=== PATIENT | female | born 1960 ===

== ENCOUNTER 2020-10-21 06:00 | Day surgery (SDC) | payer OTHER ==
[~2020-10-21 06:00] MED LIST: PRILOSEC OTC20 MG PO
== END 2020-10-21 13:25 | disposition home or self-care (01) ==
LOC: CIR.AMB 06:00
PROVIDERS: ATTEND Surgery Surgery of the Hand
DX: M65.841 Other synovitis and tenosynovitis, right hand (principal); M24.641 Ankylosis, right hand; Z20.822 Contact with and (suspected) exposure to COVID-19